=== PATIENT | female | born 1995 | race Two or more races ===

== ENCOUNTER 2017-02-14 09:44 | Day surgery (SDC) | payer BC, MEDICAID ==
[2017-02-14] MEDS ORDERED: PROPOFOL 200 MG/20 ML VIAL ONE ×2 (11:36→11:37)
[2017-02-14] MEDS ORDERED: LR 1,000 ML IV ONE (12:04)
--- NOTE | 2017-02-14 13:03 | GPN ---
[f rep st] PROCEDURE NOTE PREPROCEDURE DIAGNOSIS: Rectal pain and bleeding. POSTPROCEDURE DIAGNOSIS: Normal colonoscopy including the terminal ilium. PROCEDURE: Colonoscopy. ANESTHESIA: Monitored anesthesia care. INDICATIONS: The patient is a 21-year-old female with history of intermittent rectal pain and bleed ing. She is here for colonoscopy for further evaluation. The risks and benefits of the procedure w ere discussed with the patient, and consent obtained. Risks include, but not limited to, bleeding, perforation, risks related to sedation. Patient is ASA class 1. DESCRIPTION OF PROCEDURE: The adult colonoscope was advanced into the terminal ileum which appeared normal. The ileocecal valve, appendiceal orifice, cecum, ascending colon, hepatic flexure, transve rse colon, splenic flexure, descending colon, sigmoid colon were all normal. Retroflexed views of t he rectum were normal. There was no evidence of hemorrhoids or fissures. IMPRESSION: Normal colonoscopy including terminal ileum. RECOMMENDATIONS: 1. Discharged home with escort. 2. Advance diet as tolerated. 3. Repeat screening colonoscopy at age 48 for colon cancer screening. 4. Follow up in our GI clinic as needed for recurrent rectal pain and bleeding. 5. Thank you for allowing me to participate in the care of your patient. Please do not hesitate to call with questions. /[id number]/MODL
== END 2017-02-14 13:00 | disposition home or self-care (01) ==
LOC: FSGY 09:44
PROVIDERS: ATTEND Internal Medicine Gastroenterology
PROC: 0DJDXZZ Inspection of Lower Intestinal Tract, External Approach (ICD-10-PCS; principal; 2017-02-14 11:30)
DX: K62.89 Other specified diseases of anus and rectum (principal); K62.9 Disease of anus and rectum, unspecified
CPT/HCPCS: J2704